=== PATIENT | female | born 1975 | race Two or more races ===

== ENCOUNTER → 2024-07-05 | Outpatient (CLI) | payer MEDICAID, SELFPAY ==
--- NOTE | 2024-07-05 08:30 | XR_ITS ---
Examination: Breast ultrasound complete, bilateral Date and time of exam: July 05, 2024 0829 hours INDICATIONS: History suspicious breast nodule Technique: Real-time grayscale ultrasonographic imaging bilateral breasts, including all 4 quadrants as well as nipple retroareolar and axillary regions. Findings: Sonographic images right breast Multiple benign cysts, the largest in the 12:00 position 7 x 7 mm No solid nodules Sonographic images left breast Multiple benign cysts 2:00 circumscribed nodule 4 x 4 millimeter IMPRESSION: BI-RADS Category 2: Benign findings
== END | disposition home or self-care (01) ==
LOC: CDIM 08:08
PROVIDERS: PCP Nurse Practitioner Family; Referring Provider Nurse Practitioner Family; Visit Provider Nurse Practitioner Family
DX: N63.12 Unspecified lump in the right breast, upper inner quadrant (principal); N60.01 Solitary cyst of right breast; N60.02 Solitary cyst of left breast
CPT/HCPCS: 76641

== ENCOUNTER → 2024-07-11 | Outpatient (CLI) | payer MEDICAID, SELFPAY ==
--- NOTE | 2024-07-11 09:15 | XR_ITS ---
Examination: Diagnostic digital mammography, bilateral Computer aided detection 3-D breast Tomosynthesis, bilateral Date and time of exam: July 11, 2024 0929 hours INDICATIONS: Outside mammogram March 26, 2024 14 mm focal asymmetry central right breast, 11 mm mass upper outer left breast consistent Technique: Nonmagnified MLO, CC views of the breasts to been obtained, reconstructed from 3-D Tomosynthesis images. R2 computer aided detection program utilized for evaluation of suspicious masses and/or abnormal calcifications. 3-D Tomosynthesis images obtained. Findings: The breasts are heterogeneously dense, which may obscure small masses Focal asymmetry central right breast on the spot compression CC view again noted No suspicious left breast mass noted Impression: BI-RADS Category 3: Probably benign findings One additional 6 month right mammogram follow-up is needed to document stability of focal asymmetry central right breast.
== END | disposition home or self-care (01) ==
PROVIDERS: PCP Nurse Practitioner Family; Referring Provider Nurse Practitioner Family; Visit Provider Nurse Practitioner Family
DX: R92.333 Mammographic heterogeneous density, bilateral breasts (principal); N64.89 Other specified disorders of breast
CPT/HCPCS: 77062; 77066; G0279